=== PATIENT | female | born 2000 | race Two or more races ===

== ENCOUNTER 2025-02-04 06:07 | Emergency (ER) | payer MEDICAID, SELFPAY ==
[2025-02-04 06:09] VITALS: BMI 24.5
[2025-02-04 06:12] VITALS: BP 116/82; PULSE 96; RESP 18; TEMP 36.8; O2SAT 97
--- NOTE | 2025-02-04 06:35 | EDNOTE_ITS ---
ED Female Urogenital RME/HPI General Chief complaint: Urogenital-Female Stated complaint: VAGINAL INTCHING/SWELLING Time Seen by Provider: 02/04/25 06:10 Arrival date/time: 02/04/25 06:07 24-year-old female presents to the emergency department today for complaints of vaginal itching and discharge. Patient reports that he went to [facility] yesterday had workup completed patient reports she was tested for and was negative. Patient was discharged home with doxycycline and Flagyl patient came for reevaluation Limitations: no limitations Related Data Previous Rx's ?Medication ?Instructions ?Recorded fluconazole 150 mg tablet 150 mg PO Q3D 2 doses #2 tab s 02/04/25 Allergies Allergy/AdvReac Type Severity Reaction Status Date / Time No Known Allergies Allergy Verified 02/04/25 06:09 Review of Systems Review of Systems Systems Reviewed: All systems reviewed, normal except as documented Constitutional Constitutional: Reports system reviewed and no additional complaints, except as documented, Denies fever(s) and Denies headache(s) Eyes Eyes: Reports system reviewed and no additional complaints, except as documented and Denies blurry vision ENT Ears, Nose, Mouth, and Throat: Reports system reviewed and no additional complaints, except as documented, Denies headache(s), Denies nasal congestion and Denies nasal discharge Cardiovascular Cardiovascular: Reports system reviewed and no additional complaints, except as documented, Denies chest pain and Denies dyspnea Respiratory Respiratory: Reports system reviewed and no additional complaints, except as documented, Denies chest congestion, Denies cough and Denies dyspnea Gastrointestinal Gastrointestinal: Reports system reviewed and no additional complaints, except as documented and Denies abdominal pain Genitourinary Genitourinary: Reports system reviewed and no additional complaints, except as documented, Denies abnormal vaginal bleeding and Reports vaginal discharge Integumentary/Breasts Skin/Breast: Reports system reviewed and no additional complaints, except as documented and Denies rash Neurologic Neurologic: Reports system reviewed and no additional complaints, except as documented, Reports as per HPI and Denies headache(s) Past Medical History Social History SMOKING STATUS: Never smoker ED Exam General Limitations: Present no limitations General appearance: Present alert and in no apparent distress Head Head exam: Present atraumatic, normocephalic and normal inspection Eye Eye exam: Present normal appearance, PERRL and EOMI; Absent conjunctival injection ENT ENT exam: Present normal exam, normal oropharynx and mucous membranes moist Neck Neck exam: Present normal inspection, full ROM and trachea midline Chest Chest inspection: Present normal inspection and symmetric chest wall rise Respiratory Respiratory exam: Present normal lung sounds bilaterally; Absent respiratory distress Cardiovascular Cardiovascular exam: Present regular rate, normal rhythm and normal heart sounds Abdominal Exam Abdominal exam: Present soft and normal bowel sounds; Absent distention, tenderness, guarding, rebound or rigidity External exam: Present normal external exam; Absent erythema, tenderness, swelling, lesions, lacerations or ecchymosis Extremities Exam Extremities exam: Present normal inspection and full ROM Back Exam Back exam: Present normal inspection and full ROM Neurological Exam Neurological exam: Present alert, oriented X3 and CN II-XII intact Psychiatric Psychiatric exam: Present normal affect and normal mood Skin Skin exam: Present warm, dry, intact and normal color Course Quality Measures none Orders Category Date Time Status Chlamydia/GC/TV - PCR Stat Lab 02/04/25 Ordered HCG Qualitative,Urine Stat Lab 02/04/25 06:35 Ordered UA, C/S IF [Urinalysis, C/S if Indicated] Stat Lab 02/04/25 06:35 Ordered Fluconazole [Diflucan] Med 02/04/25 06:33 Discontinued 150 mg PO X1 ONE Lidocaine 1% 20 ml [Xylocaine 1% 20 ML] Med 02/04/25 06:33 Discontinued 2.1 ml INFL X1 ONE cefTRIAXone [Rocephin] Med 02/04/25 06:33 Discontinued 1,000 mg IM X1 ONE Vital Signs Vital signs: Vital Signs Temperature 98.3 F 02/04/25 06:12 Pulse Rate 96 02/04/25 06:12 Respiratory Rate 18 02/04/25 06:12 Blood Pressure 116/82 02/04/25 06:12 Pulse Oximetry (%) 97 02/04/25 06:12 Oxygen Delivery Method Room Air 02/04/25 06:12 O2 saturation 97% room air within normal limits Urogenital - Female MDM Narrative MDM Narrative:: 24-year-old female presents to the emergency department today for complaints of vaginal itching and discharge. Patient reports that he went to [facility] yesterday had workup completed patient reports she was tested for and was negative. Patient was discharged home with doxycycline and Flagyl patient came for reevaluation On exam patient has no rashes or sores no chancre GC chlamydia, urinalysis and test obtained and is pending Patient given 1 dose of Rocephin here as well as a dose of fluconazole I suspect that the patient has candidiasis breath her differentials include but not limited to STDs Explained to the patient that she should also have an HIV and syphilis testing and full gynecological examination Patient discharged home in no distress to follow-up with primary care doctor in the next 24 to 48 hours and for any worsening symptoms to return to the ER immediately Patient data External records reviewed:: [facility] previous records Clinical information provided by:: patient Social determinants that could affect healthcare access:: none Patient has the following chronic illnesses:: None How is presenting disease/condition affected by chronic disease/condition?: no chronic disease Evaluation data The following diagnostics were reviewed and interpreted by me:: lab results Lab and/or radiology exams considered but not ordered:: Labs obtained Interpretation Summary: Reviewed by me Medications / Prescriptions Medications or Prescriptions considered but not ordered:: Given Medication administrations:: Medication Administration History Discontinued Medications Ceftriaxone Sodium (Ceftriaxone Sod Inj 1,000 Mg Vial) 1,000 mg IM X1 ONE Stop: 02/04/25 06:34 Fluconazole (Fluconazole 150 Mg Tablet) 150 mg PO X1 ONE Stop: 02/04/25 06:34 Lidocaine HCl (Lidocaine Hcl 1% 20 Ml Vial) 2.1 ml INFL X1 ONE Stop: 02/04/25 06:34 Given Consultations Consultation(s) initiated? (list below): No Diagnosis Urogenital Female Differential Diagnosis: urinary tract infection, bacterial va ginosis, cyst of Bartholin's gland and cystitis Most likely diagnosis given after review of the tests above:: Candidiasis, vaginal itching Admission Indicated Admission indicated?: not indicated Admission Request Was there a request for admission?: No Disposition Plan Disposition Plan: Discharge Discharge Attestation Discharge Attestation: The patient and all family members were given an opportunity to ask questions and understood the discharge instructions. Discharge instructions specifically effects, indications for sooner follow up or return to the emergency department, and the expected course of current diagnosis. Patient condition: Stable Discharge Plan Plan Patient Disposition: HOME (Self Care) Disposition Comment: Stable Prescriptions/Referrals Prescriptions/Med Rec: New fluconazole 150 mg tablet 150 mg PO Q3D Qty: 2 0RF Rx Instructions: may repeat second dose 72 hrs after first dose if symptoms persist Problem List Clinical Impression: Vaginal discharge Patient/Caregiver Discharge Instructions Education Materials: Vaginal Infection Additional Instructions: Please follow up with your primary care doctor in the next 24-48hrs for any worsening symptoms return here immediately Your GC chlamydia and urinalysis are pending you were treated prophylactically with antibiotics please continue taking antibiotics prescribed at [facility] yesterday Please follow-up with the PCP for further evaluation Print Language: Portuguese Stand Alone Forms: Norma Award Info., Work/School Release, Patient Portal Info Letter LUZ ELENA/TIARA Supervising Physician LUZ ELENA/TIARA Supervising Physician: Dr neal
[2025-02-04] MEDS: LIDOCAINE HCL 1% 20 ML VIAL 2.1 ML INFL (06:48)
[2025-02-04] MEDS: cefTRIAXone SOD INJ 1,000 MG VIAL 1000 MG IM (06:49)
[2025-02-04] MEDS: FLUCONAZOLE 150 MG TABLET PO (06:49)
[2025-02-04 10:23] LABS: Chlamydia trachomatis PCR Negative (Not Detect); Neisseria Gonorrhoeae DNA PCR Negative (Not Detect); Trichomonas Negative (Negative)
== END 2025-02-04 07:10 | disposition home or self-care (01) ==
LOC: SERX 07:02
PROVIDERS: Nurse Practitioner Primary Care; Emergency Provider Emergency Medicine
DX: N89.8 Other specified noninflammatory disorders of vagina (principal)
CPT/HCPCS: 81001; 81025; 87491; 87591; 87661; 96372; 99283; J0696; J3490; A9270